=== PATIENT | male | born 1985 | race Caucasian/White ===

== ENCOUNTER 2016-08-31 15:14 | Emergency (ER) | payer MEDICAID ==
[~2016-08-31] VITALS: Ht 180.3 cm; Wt 64.1 kg
[~2016-08-31 15:14] MED LIST: HYDR-3534 PO
[2016-08-31 15:23] VITALS: BP 121/77; PULSE 71; RESP 15; TEMP 98.1; O2SAT 99
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
== END 2016-08-31 16:54 | disposition home or self-care (01) ==
LOC: PHEFT 15:14
DX: S00.81XA Abrasion of other part of head, initial encounter (principal); S50.812A Abrasion of left forearm, initial encounter; S00.83XA Contusion of other part of head, initial encounter; S50.12XA Contusion of left forearm, initial encounter; R51 Headache; F17.210 Nicotine dependence, cigarettes, uncomplicated; Y00.XXXA Assault by blunt object, initial encounter; Y92.414 Local residential or business street as the place of occurrence of the external cause; Y99.8 Other external cause status; Y93.01 Activity, walking, marching and hiking
CPT/HCPCS: 70450; 70486

== ENCOUNTER 2016-09-12 20:17 | Emergency (ER) | payer MEDICAID ==
[~2016-09-12] VITALS: Ht 180.3 cm; Wt 63.0 kg
[2016-09-12 20:32] VITALS: BP 126/75; PULSE 55; RESP 16; TEMP 98.2; O2SAT 100
[2016-09-12 21:25] VITALS: BP 129/82; PULSE 57; RESP 18; TEMP 98.3; O2SAT 99
[2016-09-12 21:42] VITALS: PULSE 49
[2016-09-12] MEDS ORDERED: MULTTAB4 PO (21:45)
[2016-09-12] MEDS ORDERED: BETA PROSTATE PO (21:49)
[2016-09-12 22:22] LABS: BLOOD, URINE LARGE (NEG); GLUCOSE,URINE NEG (NEG); KETONE, URINE TRACE mg/dL (NEG); NITRITE,URINE NEG (NEG); PH, URINE 6.5 (5.0-8.5)
[2016-09-12 22:23] LABS: BASOPHIL % 0.3 % (0.0-2.0); EOSINOPHIL # 0.1 TH/MM3 (0-0.4); EOSINOPHIL % 1.5 % (0.0-4.0); HEMATOCRIT 43.2 % (39.0-51.0); HEMO FLAGS DIFF FINAL; LYMPH % 26.7 % (9.0-44.0); LYMPHOCYTE # 1.6 TH/MM3 (1.0-4.8); MEAN CELL VOLUME 87.9 FL (80.0-100.0); MEAN CORPUSCULAR HEMOGLOBIN 30.1 PG (27.0-34.0); MEAN CORPUSCULAR HGB CONC 34.3 % (32.0-36.0); MONO % 8.1 % (0.0-8.0); NEUT % 63.4 % (16.0-70.0); PLATELET COUNT 220 TH/MM3 (150-450); RED BLOOD COUNT 4.92 MIL/MM3 (4.50-5.90); RED CELL DISTRIBUTION WIDTH 12.5 % (11.6-17.2); WHITE BLOOD COUNT 6.2 TH/MM3 (4.0-11.0)
[2016-09-12 22:25] LABS: URINE COLOR YELLOW (YELLW/STRAW)
[2016-09-12 22:28] LABS: COMMENT (UR) CULT NOT INDICATED; CULTURE IF INDICATED CULT NOT INDICATED; MUCUS URINE FEW /lpf (OCC); SQUAMOUS EPITHELIAL CELL URINE 0-5 /hpf (0-5); WBC, URINE 0-2 /hpf (0-5)
[2016-09-12 22:37] LABS: CHLORIDE 107 MEQ/L (98-107); POTASSIUM 3.9 MEQ/L (3.5-5.1); SODIUM (NA) 143 MEQ/L (136-145)
[2016-09-12 22:40] LABS: ANION GAP 6 MEQ/L (5-15); BICARBONATE 29.9 MEQ/L (21.0-32.0); BLOOD UREA NITROGEN 24 MG/DL (7-18)
[2016-09-12 22:43] LABS: ALT (GPT) 21 U/L (12-78); AST (GOT) 15 U/L (15-37)
[2016-09-12 22:44] LABS: GLOMERULAR FILTRATION RATE 87 ML/MIN (>89)
[2016-09-12 22:45] LABS: TOTAL BILIRUBIN ADULT 0.5 MG/DL (0.2-1.0)
[2016-09-12 22:46] LABS: ALKALINE PHOSPHATASE 54 U/L (45-117)
--- NOTE | 2016-09-12 22:54 | PD ---
HPI Chief Complaint: Abdominal Pain Time Seen by Provider: 21:47 Travel History International Travel<30 days: No Contact w/Intl Traveler<30days: No Traveled to known affect area: No History of Present Illness HPI This 31-year-old male is complaining of abdominal pain. He says he been having pain for about 2 weeks. It's a crampy type of pain. It initially was across the midabdomen now it seems to be lower. He's had a or appetite. He says he has lost about 15 pounds during this period of time. He has a history of irritable bowel syndrome but those episodes are usually lasting about a week and then resolved. He was worked up about 10 years ago with an endoscopy. He is on not on any medication at this time. He is not aware of fever or chills. His been having 3 bowel movements daily. They aren't loose and sometimes have mucus. He has not noted any blood in his stool PFSH Past Medical History Diminished Hearing: No Medical other: Yes (LYME DISEASE) Immunizations Current: Yes Tetanus Vaccination: < 5 Years Influenza Vaccination: Yes Past Surgical History Surgical History: No Previous Surgery Social History Alcohol Use: No Tobacco Use: No Substance Use: No Allergies-Medications (Allergen,Severity, Reaction): Coded Allergies: Penicillin (Unverified Allergy, Severe, HIVES, 09/12/16) Aspirin (Verified Allergy, Mild, HIVES, 09/12/16) Reported Meds & Prescriptions Reported Meds & Active Scripts Active Reported [Beta-Prostate] Tab PO DAILY Multi Vitamin Mens (Multiple Vitamin) 1 Tab Tab Tab PO DAILY Review of Systems General / Constitutional: No: Fever, Chills Eyes: No: Diploplia, Blurred Vision HENT: No: Headaches, Vertigo Cardiovascular: No: Chest Pain or Discomfort, Palpitations Respiratory: No: Cough, Shortness of Breath Gastrointestinal: Positive: Nausea, Abdominal Pain, Loss of Appetite, No: Vomiting, Hematemesis, Constipation Genitourinary: No: Urgency, Frequency Musculoskeletal: No: Myalgias, Arthralgias Skin: No Rash, No Itching Neurologic: No: Weakness Physical Exam Narrative GENERAL: Well-developed female SKIN: Focused skin assessment warm/dry. HEAD: Atraumatic. Normocephalic. EYES: Pupils equal and round. No scleral icterus. No injection or drainage. ENT: No nasal bleeding or discharge. Mucous membranes pink and moist. NECK: Trachea midline. No JVD. CARDIOVASCULAR: Regular rate and rhythm. No murmur appreciated. RESPIRATORY: No accessory muscle use. Clear to auscultation. Breath sounds equal bilaterally. GASTROINTESTINAL: Abdomen soft, mild lower abdominal tenderness without guarding , nondistended. Hepatic and splenic margins not palpable. MUSCULOSKELETAL: No obvious deformities. No clubbing. No cyanosis. No edema. NEUROLOGICAL: Awake and alert. No obvious cranial nerve deficits. Motor grossly within normal limits. Normal speech. PSYCHIATRIC: Appropriate mood and affect; insight and judgment normal. Data Data Last Documented VS Vital Signs Date Time Temp Pulse Resp B/P Pulse Ox O2 Delivery O2 Flow Rate FiO2 09/12/16 23:10 69 17 128/66 98 Room Air 09/12/16 21:25 98.3 Orders Complete Blood Count With Diff (09/12/16 22:02) Comprehensive Metabolic Panel (09/12/16 22:02) Urinalysis - C+S If Indicated (09/12/16 22:02) Ct Abd/Pel W Iv Contrast(Rout) (09/12/16 22:02) Iohexol 350 Inj (Omnipaque 350 Inj) (09/12/16 23:07) Labs Laboratory Tests Test 09/12/16 22:10 White Blood Count 6.2 TH/MM3 Red Blood Count 4.92 MIL/MM3 Hemoglobin 14.8 GM/DL Hematocrit 43.2 % Mean Corpuscular Volume 87.9 FL Mean Corpuscular Hemoglobin 30.1 PG Mean Corpuscular Hemoglobin 34.3 % Concent Red Cell Distribution Width 12.5 % Platelet Count 220 TH/MM3 Mean Platelet Volume 7.7 FL Neutrophils (%) (Auto) 63.4 % Lymphocytes (%) (Auto) 26.7 % Monocytes (%) (Auto) 8.1 % Eosinophils (%) (Auto) 1.5 % Basophils (%) (Auto) 0.3 % Neutrophils # (Auto) 4.0 TH/MM3 Lymphocytes # (Auto) 1.6 TH/MM3 Monocytes # (Auto) 0.5 TH/MM3 Eosinophils # (Auto) 0.1 TH/MM3 Basophils # (Auto) 0.0 TH/MM3 CBC Comment DIFF FINAL Differential Comment Urine Color YELLOW Urine Turbidity SLIGHTY CLOUDY Urine pH 6.5 Urine Specific Sayre 1.025 Urine Protein NEG mg/dL Urine Glucose (UA) NEG mg/dL Urine Ketones TRACE mg/dL Urine Occult Blood LARGE Urine Nitrite NEG Urine Bilirubin NEG Urine Leukocyte Esterase NEG Urine RBC 10-14 /hpf Urine WBC 0-2 /hpf Urine Squamous Epithelial 0-5 /hpf Cells Urine Amorphous Sediment MOD Urine Mucus FEW /lpf Microscopic Urinalysis Comment CULT NOT INDICATED Sodium Level 143 MEQ/L Potassium Level 3.9 MEQ/L Chloride Level 107 MEQ/L Carbon Dioxide Level 29.9 MEQ/L Anion Gap 6 MEQ/L Blood Urea Nitrogen 24 MG/DL Creatinine 1.00 MG/DL Estimat Glomerular Filtration 87 ML/MIN Rate Random Glucose 86 MG/DL Calcium Level 9.3 MG/DL Total Bilirubin 0.5 MG/DL Aspartate Amino Transf 15 U/L (AST/SGOT) Alanine Aminotransferase 21 U/L (ALT/SGPT) Alkaline Phosphatase 54 U/L Total Protein 7.4 GM/DL Albumin 4.5 GM/DL [facility] Medical Decision Making Medical Screen Exam Complete: Yes Emergency Medical Condition: Yes Medical Record Reviewed: Yes Differential Diagnosis Differential includes IBS, inflammatory bowel disease, enteritis, colitis Narrative Course White count is normal. Urinalysis does show a small amount of red cells. CT scan of the abdomen and pelvis is read as negative. Etiology of this pain is not clear. This may be another episode of his IBS. I will prescribe Bentyl Diagnosis Primary Impression: Abdominal pain Qualified Code: R10.30 - Lower abdominal pain Additional Impression: IBS (irritable bowel syndrome) Qualified Code: K58.9 - Irritable bowel syndrome, unspecified type Scripts Dicyclomine (Bentyl)20 Mg Tab20 Mg PO TID PRN (Bowel Management) #30 TAB Ref 0 Prov:Yonatan Ronquillo MD 09/13/16 Disposition: DISCHARGE HOME Condition: Stable Yonatan Ronquillo MD Sep 12, 2016 22:54
[2016-09-12] MEDS ORDERED: IOHEXOL 350 MG/ML 10 ML VIAL (for RAD DIAG) IV ONE (23:07)
[2016-09-12 23:10] VITALS: BP 128/66; PULSE 69; RESP 17; O2SAT 98
--- NOTE | 2016-09-12 23:33 | RADHPO ---
EXAM DATE/TIME: 09/12/2016 22:50 [facility] COMPARISON: No previous studies available for comparison. INDICATIONS : Lower abdominal pain radiating into testicles. Weight loss of twenty pounds over six months. IV CONTRAST: 100 cc Omnipaque 350 (iohexol) IV ORAL CONTRAST: No oral contrast ingested. RADIATION DOSE: 4.91 CTDIvol (mGy) MEDICAL HISTORY : None SURGICAL HISTORY : None. ENCOUNTER: Initial ACUITY: 2 weeks PAIN SCALE: 7/10 LOCATION: Bilateral lower quadrant TECHNIQUE: Volumetric scanning of the abdomen and pelvis was performed. Using automated exposure control and ad justment of the mA and/or kV according to patient size, radiation dose was kept as low as reasonably achievable to obtain optimal diagnostic quality images. FINDINGS: LOWER LUNGS: The visualized lower lungs are clear. LIVER: Homogeneous density without concerning lesion. There is 8mm fat density lesion in the right liver adj acent to the capsule. There is no dilation of the biliary tree. No calcified gallstones. SPLEEN: Normal size without lesion. PANCREAS: Within normal limits. KIDNEYS: Normal in size and shape. There is no mass, stone or hydronephrosis. ADRENAL GLANDS: Within normal limits. VASCULAR: There is no aortic aneurysm. BOWEL/MESENTERY: The stomach, small bowel, and colon demonstrate no acute abnormality. There is no free intraperitone al air or fluid. ABDOMINAL WALL: Within normal limits. RETROPERITONEUM: There is no lymphadenopathy. BLADDER: No wall thickening or mass. REPRODUCTIVE: Within normal limits. INGUINAL: There is no lymphadenopathy or hernia. MUSCULOSKELETAL: Within normal limits for patient age. CONCLUSION: 1. No abnormality is identified to explain the clinical symptoms. No acute finding is visualized. 2. 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 Matt Smith MD on September 12, 2016 at 23:27 Board Certified Radiologist. This report was verified electronically.
[2016-09-13] MEDS ORDERED: BENT20TA PO (00:01)
[2016-09-13 00:10] VITALS: BP 114/69; PULSE 63; RESP 18; O2SAT 100
== END 2016-09-13 00:32 | disposition home or self-care (01) ==
LOC: PHED 20:17
DX: K58.9 Irritable bowel syndrome, unspecified (principal)
CPT/HCPCS: 74177; 80053; 81001; 85025; 99284; Q9967